=== PATIENT | male | born 1940 | race Caucasian/White ===

== ENCOUNTER 2018-06-18 09:47 | Emergency (ER) | payer MEDICARE ==
[2018-06-18 10:58] LABS: ALT (SGPT) 9 U/L (8-55); AST (SGOT) 18 U/L (5-34); Albumin 3.8 g/dL (3.4-4.8); Alkaline Phosphatase 51 U/L (40-150); Anion Gap 14 mmol/L (10-20); BUN (Urea Nitrogen) 14 mg/dL (8.4-25.7); Bilirubin, Total 0.7 mg/dL (0.2-1.2); Calc. Creatinine Clearance 0 mL/min (70-130); Calcium 9.2 mg/dL (7.8-10.44); Carbon Dioxide 23 mmol/L (23-31); Chloride 107 mmol/L (98-107); Estimated GFR-MDRD 67; Globulin 3.1 g/dL (2.4-3.5); Glucose 126 mg/dL (83-110); Potassium 4.1 mmol/L (3.5-5.1); Protein, Total 6.9 g/dL (5.8-8.1); Sodium 140 mmol/L (136-145)
[2018-06-18 10:59] LABS: #Eosinphils 0.1 thou/uL (0.0-0.7); #Lymphocytes 0.8 thou/uL (1.20-3.40); #Monocytes 0.5 thou/uL (0.11-0.59); #Neutrophils 5.4 thou/uL (1.40-6.50); %Basophils 0.1 % (0.0-1.0); %Eosinophils 1.2 % (0.0-10.0); %Lymphocytes 11.5 % (21.0-51.0); %Monocytes 7.2 % (0.0-10.0); Hemoglobin 14.3 g/dL (14.0-18.0); Mean Corpuscular HGB CONC 35.6 g/dL (32.0-36.0); Mean Corpuscular Hemoglobin 31.8 pg (27.0-31.0); Mean Corpuscular Volume 89.4 fL (78.0-98.0); Mean Platelet Volume 7.5 fL (7.4-10.4); PLT Morphology Comment Appears Decreased; Platelet Count 111 thou/uL (130-400); RBC Distribution Width 13.4 % (11.5-14.5); RBC Morphology Normal; Red Blood Cell (RBC) Count 4.48 mill/uL (4.70-6.10); White Blood Cell (WBC) Count 6.7 thou/uL (4.8-10.8)
[2018-06-18] MEDS ORDERED: Diazepam 2 MG TAB PO SCH (12:00)
--- NOTE | 2018-06-18 12:42 | RAD ---
LUMBAR SPINE THREE VIEWS: History: Low back pain. FINDINGS/IMPRESSION: Degenerative changes are present. There is grade I anterolisthesis of L5 over S1. No acute fracture o r bony destruction is identified. There are vascular calcifications. POS: [facility]
--- NOTE | 2018-06-18 12:50 | RAD ---
PORTABLE CHEST ONE VIEW: Date: 06-18-18 Time: 11:49 a.m. History: Non-Hodgkins' lymphoma. Bilateral flank pain. FINDINGS/IMPRESSION: There are changes of median sternotomy. The heart size is normal. The aorta is tortuous. There is a l eft port-a-cath with tips in the projection of the SVC. There is pulmonary vascular congestion. Pleur al calcifications are seen on the left. No lobar consolidation, pneumothoraces, or large effusions ar e identified. There are degenerative changes in the right shoulder joint. POS: [facility]
--- NOTE | 2018-06-18 13:14 | CT ---
CT CERVICAL SPINE WITH CORONAL AND SAGITTAL REFORMATIONS: History: Back pain, neck pain, headache. FINDINGS/IMPRESSION: Multilevel degenerative changes are seen in the cervical spine. No acute fracture or subluxation is i dentified. No facet malalignment is noted. There is left sided neural foraminal stenosis at C3-4 leve l and bilateral neural foraminal stenosis at C4-5 and C5-6 levels. Incidental note is made of a large intramuscular lipoma in the right upper paraspinal musculature. POS: STEVE
[2018-06-18] MEDS ORDERED: Diazepam 10 MG/2 ML SYRINGE IVP SCH (13:45)
[2018-06-18 15:13] LABS: Bilirubin Negative (Negative); Blood, Urine Negative (Negative); Clarity CLEAR (Clear); Glucose, Urine (Dipstick) Negative (Negative); Leukocyte Negative (Negative); Nitrite Negative (Negative); Protein, Urine (Dipstick) Negative (Neg-Trace); Specific Gravity, Urine 1.008 (1.002-1.036); Urobilinogen 0.2 mg/dL (0.2-1.0)
[2018-06-18] MEDS ORDERED: Cyclobenzaprine 10 MG TAB ONE (16:18)
== END 2018-06-18 17:04 | disposition home or self-care (01) ==
LOC: ERS 09:47
DX: M46.90 Unspecified inflammatory spondylopathy, site unspecified (principal); E78.5 Hyperlipidemia, unspecified; F17.220 Nicotine dependence, chewing tobacco, uncomplicated; Z79.899 Other long term (current) drug therapy
CPT/HCPCS: 36415; 71045; 72100; 72125; 80053; 81003; 85025; 85652; 86140; 96374; 96376; J2270; J3360

== ENCOUNTER 2018-06-22 13:54 | Inpatient (IN) | payer MEDICARE ==
[2018-06-22] MEDS ORDERED: Morphine 10 MG/ML VIAL ONE (15:01)
[2018-06-22] MEDS ORDERED: Ketorolac Tromethamine 30 MG/ML VIAL ONE (15:01)
--- NOTE | 2018-06-22 15:05 | CT ---
CT LUMBAR SPINE WITH CORONAL AND SAGITTAL REFORMATIONS: HISTORY: Back pain, loss of movement. FINDINGS: Multilevel degenerative changes are seen in the lumbar spine. No compression fracture is identified. There are chronic bilateral pars articularis defects at L5 level with grade I anterolisthesis of L5 over S1. There is vacuum disk phenomenon at L5-S1 disk. Bilateral neural foraminal stenosis are noted at L5-S1 level. IMPRESSION: 1. Lumbar spondylosis. 2. Bilateral spondylysis at L5 with grade I spondylolisthesis at L5 over S1. 3. Bilateral neural foraminal stenoses at L5-S1 level. POS: [facility]
--- NOTE | 2018-06-22 16:11 | ULT ---
FOCUSED ULTRASOUND OF THE REGION 06/22/18 COMPARISON: None. HISTORY: Groin pain. FINDINGS: The patient reports a palpable abnormality in the right "groin" region, superior to the scrotum and a djacent to the penis. In this region, there is a nonspecific round heterogeneously hypoechoic mass wi thin the subcutaneous fat measuring 1.5 x 1.5 x 1.1 cm. This lesion appears solid and is a nonspecifi c finding. IMPRESSION: Heterogeneously hypoechoic round mass in the area of palpable concern which appears solid. This may represent an abnormal lymph nodes. Soft tissue tumor or developing phlegmon are possibilities. Short term followup imaging following treatment to document resolution is advised. If this abnormality does not resolve despite treatment, an MRI of the region of interest with and without contrast would then be advised. Code T POS: [facility]
[2018-06-22 18:29] VITALS: BMI 33.2
[2018-06-22] MEDS ORDERED: Ondansetron ODT 4 MG TAB PO PRN (19:18)
--- NOTE | 2018-06-22 19:35 | PDOC.FPRHP ---
- History of Present Illness Chief Complaint: Lumbar back pain History of Present Illness: This is a 77 yo male with a PMH of CAD with CABG in 2008, HLD who presents to the ED with a CC of back pain. He states it has been going on for 4 days and is a sharp and severe pain. He states that he was working on a project at home prior to the start of his pain. He reports no injury to his back that he can remember. The pain is located in his lower back with no radiations. He states that movement makes it worse and relieved with rest. He states he has associated muscle tightness and back stiffness. He denies shooting pain, loss of bowel or bladder function, changes in sensation, or weakness. He also complains about a current inguinal hernia. ED Course: Pt. received toradol and morphine in the ED that reduced his pain from 05/21 to . - Allergies/Adverse Reactions Allergies Allergy/AdvReac Type Severity Reaction Status Date / Time No Known Drug Allergies Allergy Verified 06/22/18 18:47 - Home Medications Medication Instructions Recorded Confirmed Type FLUoxetine HCl [Fluoxetine HCl] 20 mg PO DAILY 06/22/18 06/22/18 History Finasteride 5 mg PO DAILY 06/22/18 06/22/18 History Isosorbide Mononitrate 10 mg PO DAILY 06/22/18 06/22/18 History Meloxicam 06/22/18 History Metoprolol Tartrate [Lopressor] 25 mg PO BID 06/22/18 06/22/18 History Ranitidine HCl 150 mg PO DAILY 06/22/18 06/22/18 History Rivaroxaban [Xarelto] 20 mg PO DAILY 06/22/18 06/22/18 History Simvastatin [Zocor] 40 mg PO HS 06/22/18 06/22/18 History Tamsulosin HCl 0.4 mg PO DAILY 06/22/18 06/22/18 History Temazepam 15 mg PO DAILY 06/22/18 06/22/18 History - History PMHx: CAD, HLD, hx of lymphoma, osteoarthritis PSHx: Hernia repair x3 FHx: None contributory Social: Former smoker, occasional alcohol use, no drug use - Review of Systems General: denies: fever/chills, weight/appetite/sleep changes, fatigue Eyes: reports: vision changes (Cataracts). denies: eye pain ENT: denies: nasal congestion, rhinorrhea Respiratory: reports: cough (has had non productive cough). denies: congestion , shortness of breath Cardiovascular: denies: chest pain, palpitation, edema Gastrointestinal: denies: nausea, vomiting, diarrhea, constipation, abdominal pain Genitourinary: denies: incontinence, dysuria Skin: denies: rashes, lesions Musculoskeletal: reports: pain (See HPI), tenderness, stiffness Neurological: denies: numbness, weakness Psychological: denies: anxiety, depression - Vital signs BP: [] HR: [] RR: [] Tmax: [] Pox: []% on [] Wt: [] - Physical Exam Constitutional: NAD, awake, alert and oriented HEENT: normocephalic and atraumatic, PERRLA, EOMI, MMM Neck: FROM, no JVD Chest: no-tender to palpation, no lesions Heart: RRR, normal S1/S2, no murmurs/rubs/gallops Lungs: no respiratory distress, good air movement Abdomen: soft, non-tender, bowel sounds present, no masses/distention -Musculoskeletal: Pt. has severe limitations in movement due to back pain. He is tender to palpation along his lumbar spine and in the paravertebral musculature. He has some tenderness into his posterior hips Neurological: CN II-XII intact, normal sensation Skin: no rash/lesions, good turgor Heme/Lymphatic: no unusual bruising or bleeding, no purpura Psychiatric: normal mood and affect, good judgment and insight, intact recent and remote memory FMR H&P: Results - Labs Result Diagrams: 06/23/18 06:13 06/23/18 06:13 - Radiology Interpretation Other Status: report reviewed by me (CT of back shows lumbar spondylosis, bilateral spondylysis at L5 with grade 1 spondylolisthesis at L5 over S1, bilateral neural stenosis at L5-S1 level US of groin nonspecific round heterogeneously hypoechoic mass within subcutaneous fat. Nonspecific finding) FMR H&P: A/P - Problem List (1) Intractable low back pain Current Visit: Yes Status: Acute Code(s): M54.5 - LOW BACK PAIN (2) Inguinal hernia, right Current Visit: Yes Status: Acute Code(s): K40.90 - UNIL INGUINAL HERNIA, W/ O OBST OR GANGR, NOT SPCF RECUR (3) CAD (coronary artery disease) of artery bypass graft Current Visit: Yes Status: Acute Code(s): I25.810 - ATHEROSCLEROSIS OF CABG W/O ANGINA PECTORIS (4) Osteoarthritis (arthritis due to wear and tear of joints) Current Visit: Yes Status: Acute Code(s): M19.90 - UNSPECIFIED OSTEOARTHRITIS, UNSPECIFIED SITE - Plan This is a 77 yo male with PMH of CAD, osteoarthritis Intractable lumbar back pain -Pt. has been seen on three different occasions for this issue within a narrow time line and was therefore admitted. He is being treated with scheduled meloxicam and PRN cyclobenzoprine and tramadol. CT reveals no fractures or other signs concerning for an acute process. Pt. also has no signs of cauda equina or neurological deficits in his lower legs. We will reevaluate patient's functionality tomorrow morning. CAD -continue home meds Arthritis -Continue home meds Code: DNR Prophylaxis: none Family: none at bedside Disposition: home in 1-2 days FMR H&P: Upper Level - Pertinent history 77M p/w "intractable" lower back pain. Patient seen in [facility] facility on three separate occasions for the same complaint and was admitted per hospital policy. Patient has a history of CAD s/p CABG, HLD, Non Hodgkin lymphoma, and leukemia. Patient not the best historian so we will corroborate history with PCP, Dr. Souza. Patient did strenuous outdoor activity one day prior to developing back pain. Imaging reveals degenerative changes of lumbar spine with mild spondylolisthesis of L5-S1 and foraminal narrowing. Patient denies any radicular pain, bowel/bladder incontinence, saddle anesthesia. He denies any fever/chills, night sweats, or increased fatigue over the last month. Back pain is sharp and constant and described as "ten fish hooks" stuck in lumbar region. Pt given morphine and toradol in ER with significant decrease in pain. - Pertinent findings Vital signs 98.6F 113/64mmHg 74 bpm 16 breaths/min 96% on RA Gen: A&Ox4 CV: RRR, no murmur Pulm: CTA-B Abd: non TTP; non distended Neuro: BLE sensation intact; DTR full and equal bilaterally; TTP over paraspinous lumbar musculature; no TTP along spinous processes; strength 5/5 bilaterally - Plan Date/Time: 06/22/18 193 Lumbar Back Pain: does not appear to be radicular in nature. Will continue with small dose of muscle relaxer, meloxicam, and ambulation. Monitor response to conservative therapy and proceed to [facility] and possible MRI if necessary. However, CT and XR show degenerative arthritic changes and are not significant for an acute process or compression fracture. Will speak with Dr. Souza in the morning in order to better understand patients history. Non Hodgkin Lymphoma: currently has mediport. Verify with PCP about past and possibly present treatments BPH: continue flomax and finasteride HLD: continue simvastatin CAD s/p CABG: continue Imdur and metoprolol I, Yong Mcclelland, have evaluated this patient and agree with findings/plan as outlined by management internship resident. Pertinent changes/additions are listed here. Attending Addendum - Attending Addendum Date/Time: 06/23/18 1241 I personally evaluated the patient and discussed the management with Dr. Mosher. I agree with the History, Examination, Assessment and Plan documented above with any addition or exceptions noted below. Patient is ahving severe back pain that interfers with ADLs wiht multiple ER visits. Pain seems improved today but he has not been out of bed. We will have PT/OT assess his ADLs, and discharge or furterh eval hemal be based on his function. He also notes right alfredo pain, but exam reveals no erythema or induration or evidence of torsion or infection. Scrotal ultrasound did not reveal acute issue. Advised outpt urology workup.
[2018-06-22] MEDS: Metoprolol Tartrate 25 MG TAB PO SCH (20:39)
[2018-06-22] MEDS: Simvastatin 40 MG TAB PO SCH (20:39)
[2018-06-22] MEDS: traMADol HCl 50 MG TAB PO PRN (20:51)
[2018-06-22] MEDS ORDERED: Temazepam 15 MG CAP PO SCH (23:30)
[2018-06-23] MEDS: Acetaminophen 325 MG TAB PO PRN (00:10)
[2018-06-23] MEDS: Cyclobenzaprine 10 MG TAB PO PRN ×2 (00:10→20:31)
--- NOTE | 2018-06-23 06:10 | PDOC.FM ---
- Subjective Subjective: Pt. states that he started hurting around 2 this morning. He states that his pain is a 7/10 currently. He denies chest pain, dyspnea, trouble breathing. He is still concerned about his hernia and says it is bothering him more than his back. Nursing states that he did not get up to use the restroom and just use his urinal. Nursing was worried to get him walking for fear of falling. - Objective MAR Reviewed: Yes Vital Signs & Weight: Vital Signs (12 hours) Temp Pulse Resp BP BP Pulse Ox 06/23/18 00:00 98.1 F 72 18 117/70 96 06/22/18 20:00 98.6 F 74 16 113/64 96 Weight Weight 96.162 kg I&O: 06/21/18 06/22/18 06/23/18 06:59 06:59 06:59 Intake Total 240 Output Total 400 Balance -160 Result Diagrams: 06/23/18 06:13 06/23/18 06:13 <Prosper Mosher - Last Filed: 06/23/18 07:37> - Objective Vital Signs & Weight: Vital Signs (12 hours) Temp Pulse Resp BP BP Pulse Ox 06/23/18 08:35 98.6 F 70 20 155/75 H 97 06/23/18 06:00 97.8 F 64 16 147/91 H 98 Weight Weight 96.162 kg I&O: 06/22/18 06/23/18 06/24/18 06:59 06:59 06:59 Intake Total 240 Output Total 650 Balance -410 Result Diagrams: 06/23/18 06:13 06/23/18 06:13 <Kael Mei - Last Filed: 06/23/18 13:04> Phys Exam - Physical Examination Constitutional: NAD (Ordering breakfast) HEENT: PERRLA, moist MMs Neck: no JVD, full ROM Respiratory: no wheezing, clear to auscultation bilateral Cardiovascular: RRR, no significant murmur Gastrointestinal: soft, non-tender, no distention, positive bowel sounds Pt. has inguinal hernia that is mildly tender to palpation Musculoskeletal: no edema, pulses present Pt. has back pain, worse with moving. Pain to palpation of lumbar musculature. Neurological: normal sensation, moves all 4 limbs Psychiatric: normal affect, A&O x 3 Skin: normal turgor, cap refill <2 seconds Deviation from normal: Has 5x5 cm lipoma on left upper back <[place]ShannanProsper - Last Filed: 06/23/18 07:37> Dx/Plan (1) Intractable low back pain Code(s): M54.5 - LOW BACK PAIN Status: Acute (2) Inguinal hernia, right Code(s): K40.90 - UNIL INGUINAL HERNIA, W/O OBST OR GANGR, NOT SPCF RECUR Status: Acute (3) CAD (coronary artery disease) of artery bypass graft Code(s): I25.810 - ATHEROSCLEROSIS OF CABG W/O ANGINA PECTORIS Status: Acute (4) Osteoarthritis (arthritis due to wear and tear of joints) Code(s): M19.90 - UNSPECIFIED OSTEOARTHRITIS, UNSPECIFIED SITE Status: Acute - Plan Plan: This is a 77 yo male with PMH of CAD, osteoarthritis Intractable lumbar back pain -Pt. has been seen on three different occasions for this issue within a narrow time line and was therefore admitted. He is being treated with scheduled meloxicam and PRN cyclobenzoprine and tramadol. CT reveals no fractures or other signs concerning for an acute process. Pt. also has no signs of cauda equina or neurological deficits in his lower legs. We will consult PT to measure is ability to walk and move about. I will discuss pt. with Dr. Souza later this morning. CAD -continue home meds Arthritis -Continue home meds Code: DNR Prophylaxis: none Family: none at bedside Disposition: home in 1-2 days <Prosper Mosher - Last Filed: 06/23/18 07:37> (1) Intractable low back pain Code(s): M54.5 - LOW BACK PAIN Status: Acute (2) Inguinal hernia, right Code(s): K40.90 - UNIL INGUINAL HERNIA, W/O OBST OR GANGR, NOT SPCF RECUR Status: Acute (3) CAD (coronary artery disease) of artery bypass graft Code(s): I25.810 - ATHEROSCLEROSIS OF CABG W/O ANGINA PECTORIS Status: Acute (4) Osteoarthritis (arthritis due to wear and tear of joints) Code(s): M19.90 - UNSPECIFIED OSTEOARTHRITIS, UNSPECIFIED SITE Status: Acute <Kael Mei - Last Filed: 06/23/18 13:04> Attending Addendum - Attending Addendum Date/Time: 06/23/18 1300 I personally evaluated the patient and discussed the management with Dr. Mosher. I agree with the History, Examination, Assessment and Plan documented above with any addition or exceptions noted below. Brian's strength is 5/5 in his legs. It seems to be pain only that limits his activity. Will see results of OT/PT. <aKel Mei - Last Filed: 06/23/18 13:04>
[2018-06-23] MEDS: traMADol HCl 50 MG TAB PO PRN ×2 (06:31→20:13)
[2018-06-23 06:45] LABS: ALT (SGPT) 8 U/L (8-55); AST (SGOT) 12 U/L (5-34); Albumin 3.2 g/dL (3.4-4.8); Alkaline Phosphatase 47 U/L (40-150); Anion Gap 12 mmol/L (10-20); BUN (Urea Nitrogen) 15 mg/dL (8.4-25.7); Bilirubin, Total 0.5 mg/dL (0.2-1.2); Calc. Creatinine Clearance 90 mL/min (70-130); Calcium 9.1 mg/dL (7.8-10.44); Carbon Dioxide 29 mmol/L (23-31); Chloride 99 mmol/L (98-107); Estimated GFR-MDRD 80; Globulin 3.1 g/dL (2.4-3.5); Glucose 111 mg/dL (83-110); Potassium 3.8 mmol/L (3.5-5.1); Protein, Total 6.3 g/dL (5.8-8.1); Sodium 136 mmol/L (136-145)
[2018-06-23 06:58] LABS: Hemoglobin 12.2 g/dL (14.0-18.0); Mean Corpuscular Hemoglobin 30.8 pg (27.0-31.0); Mean Platelet Volume 7.3 fL (7.4-10.4); Platelet Count 142 thou/uL (130-400); RBC Distribution Width 12.9 % (11.5-14.5); Red Blood Cell (RBC) Count 3.96 mill/uL (4.70-6.10); White Blood Cell (WBC) Count 4.1 thou/uL (4.8-10.8)
[2018-06-23 08:29] LABS: Eosinophils 2 % (0-10); Hypochromia SLIGHT = 6-15 cells (100X) (0-5/hpf); Lymphocytes 20 % (21-51); MDiff Complete? YES; Monocytes 6 % (0-10); Neutrophil 72 % (42-75); PLT Morphology Comment Appears Adequate; Polychromasia SLIGHT = 2-3 cells (100X) (0-2/hpf)
[2018-06-23] MEDS: Metoprolol Tartrate 25 MG TAB PO SCH ×2 (08:34→20:13)
[2018-06-23] MEDS: Meloxicam 15 MG TAB PO SCH (08:35)
[2018-06-23] MEDS: Rivaroxaban 10 MG TAB PO SCH (08:35)
[2018-06-23] MEDS: Famotidine 20 MG TAB PO SCH (08:35)
[2018-06-23] MEDS: FLUoxetine HCl 20 MG CAP PO SCH (08:36)
[2018-06-23] MEDS: Finasteride 5 MG TAB PO SCH (08:36)
[2018-06-23] MEDS: Tamsulosin HCl 0.4 MG CAP PO SCH (08:36)
[2018-06-23] MEDS ORDERED: Temazepam 15 MG CAP PO SCH (09:00)
[2018-06-23] MEDS ORDERED: Non-Formulary Item 1 EACH (Ranitidine Hcl [Ranitidine Hcl] 150 MG) PO SCH (09:00)
[2018-06-23] MEDS: Isosorbide Mononitrate 20 MG TAB PO SCH (10:00)
[2018-06-23] MEDS: Simvastatin 40 MG TAB PO SCH (20:13)
[2018-06-23] MEDS: Temazepam 15 MG CAP PO SCH (20:13)
[2018-06-24] MEDS: Acetaminophen 325 MG TAB PO PRN ×2 (00:29→11:48)
[2018-06-24 05:41] LABS: ALT (SGPT) Less than 7 U/L (8-55); AST (SGOT) 12 U/L (5-34); Albumin 3.2 g/dL (3.4-4.8); Alkaline Phosphatase 49 U/L (40-150); Anion Gap 9 mmol/L (10-20); BUN (Urea Nitrogen) 13 mg/dL (8.4-25.7); Bilirubin, Total 0.5 mg/dL (0.2-1.2); Calc. Creatinine Clearance 77 mL/min (70-130); Calcium 9.1 mg/dL (7.8-10.44); Carbon Dioxide 32 mmol/L (23-31); Chloride 99 mmol/L (98-107); Estimated GFR-MDRD 67; Globulin 3.1 g/dL (2.4-3.5); Glucose 117 mg/dL (83-110); Potassium 3.9 mmol/L (3.5-5.1); Protein, Total 6.3 g/dL (5.8-8.1); Sodium 136 mmol/L (136-145)
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
[2018-06-24 06:00] LABS: Band 5 % (5-11); Eosinophils 2 % (0-10); Hemoglobin 12.4 g/dL (14.0-18.0); Lymphocytes 13 % (21-51); MDiff Complete? YES; Mean Corpuscular Hemoglobin 29.8 pg (27.0-31.0); Mean Corpuscular Volume 87.7 fL (78.0-98.0); Mean Platelet Volume 7.2 fL (7.4-10.4); Monocytes 11 % (0-10); Neutrophil 68 % (42-75); PLT Morphology Comment Appears Adequate; Platelet Count 159 thou/uL (130-400); RBC Distribution Width 12.8 % (11.5-14.5); Red Blood Cell (RBC) Count 4.14 mill/uL (4.70-6.10); White Blood Cell (WBC) Count 4.8 thou/uL (4.8-10.8)
[2018-06-24] MEDS: traMADol HCl 50 MG TAB PO PRN ×2 (07:10→23:18)
[2018-06-24] MEDS: Tamsulosin HCl 0.4 MG CAP PO SCH (09:19)
[2018-06-24] MEDS: Rivaroxaban 10 MG TAB PO SCH (09:19)
[2018-06-24] MEDS: Meloxicam 15 MG TAB PO SCH (09:19)
[2018-06-24] MEDS: Finasteride 5 MG TAB PO SCH (09:19)
[2018-06-24] MEDS: Isosorbide Mononitrate 20 MG TAB PO SCH (09:19)
[2018-06-24] MEDS: Metoprolol Tartrate 25 MG TAB PO SCH ×2 (09:19→20:46)
[2018-06-24] MEDS: FLUoxetine HCl 20 MG CAP PO SCH (09:19)
[2018-06-24] MEDS: Famotidine 20 MG TAB PO SCH (09:20)
[2018-06-24] MEDS: Temazepam 15 MG CAP PO SCH (20:46)
[2018-06-24] MEDS: Simvastatin 40 MG TAB PO SCH (20:46)
--- NOTE | 2018-06-25 05:55 | PDOC.FM ---
Addendum entered and electronically signed by Marisol Roberson MD 06/25/18 12:28 : Talked with patient along with CM about chemo tx for his NHL. He wishes to no longer receive tx so that he is able to receive hospice. I am waiting to hear back from his oncologist Dr. Guillen from [place] to discuss this with him. Original Note: - Subjective Subjective: This is a 77 yo M here for intractable back pain, now improved on medications. On exam today, patient endorses back pain is improved to 4/10 pain. Mace is being controlled with meloxicam and flexeril. He talked with hospice and understands he was accepted into their care. Per , she is unable to take care of both him and the grandson which is why hospice was pursued. Patient states he is ready to go home and has an appointment with Dr. Souza, his PCP , later today. Patient denies any SOB, chest pain, abdominal pain, fever, NVD. - Objective Vital Signs & Weight: Vital Signs (12 hours) Temp Pulse Resp BP BP Pulse Ox 06/24/18 23:49 99.6 F 65 20 135/65 95 06/24/18 20:00 98.5 F 77 18 158/72 H 97 Weight Weight 96.162 kg I&O: 06/23/18 06/24/18 06/25/18 06:59 06:59 06:59 Intake Total 240 1600 1400 Output Total 650 Balance -410 1600 1400 Result Diagrams: 06/25/18 05:52 06/25/18 05:52 <Marisol Roberson - Last Filed: 06/25/18 11:52> - Objective Vital Signs & Weight: Vital Signs (12 hours) Temp Pulse Resp BP Pulse Ox 06/25/18 11:04 98 F 71 20 125/65 96 06/25/18 07:45 97.7 F 75 18 97 06/25/18 07:18 97.7 F 75 18 178/75 H 97 Weight Weight 96.162 kg I&O: 06/24/18 06/25/18 06/26/18 06:59 06:59 06:59 Intake Total 1600 1400 Balance 1600 1400 Result Diagrams: 06/25/18 05:52 06/25/18 05:52 <Gretta Lipscomb - Last Filed: 06/25/18 13:02> Phys Exam - Physical Examination Constitutional: NAD Patient is resting comfortably in his chair HEENT: PERRLA, moist MMs Neck: supple, full ROM Respiratory: no wheezing, clear to auscultation bilateral Cardiovascular: RRR, no significant murmur, no rub Gastrointestinal: soft, non-tender, no distention, positive bowel sounds Musculoskeletal: no edema, pulses present TTP along lower lumbar spine Neurological: non-focal, normal sensation, moves all 4 limbs Psychiatric: A&O x 3 Skin: no rash, normal turgor <Marisol Roberson - Last Filed: 06/25/18 11:52> Dx/Plan (1) CAD (coronary artery disease) of artery bypass graft Code(s): I25.810 - ATHEROSCLEROSIS OF CABG W/O ANGINA PECTORIS Status: Acute (2) Inguinal hernia, right Code(s): K40.90 - UNIL INGUINAL HERNIA, W/O OBST OR GANGR, NOT SPCF RECUR Status: Acute (3) Intractable low back pain Code(s): M54.5 - LOW BACK PAIN Status: Acute (4) Osteoarthritis (arthritis due to wear and tear of joints) Code(s): M19.90 - UNSPECIFIED OSTEOARTHRITIS, UNSPECIFIED SITE Status: Acute (5) Non-Hodgkin lymphoma Code(s): C85.90 - NON-HODGKIN LYMPHOMA, UNSPECIFIED, UNSPECIFIED SITE Status: Acute - Plan Plan: Plan: This is a 77 yo male with PMH of CAD, osteoarthritis here for intractable back pain controlled with medications. Intractable lumbar back pain - Pt. has been seen on three different occasions for this issue within a narrow time line and was therefore admitted. - Pain controlled with scheduled meloxicam and PRN cyclobenzoprine and tramadol. - CT: no fractures or other signs concerning for an acute process. Pt. also has no signs of cauda equina or neurological deficits in his lower legs. - PT consulted to measure is ability to walk and move about. CAD -continue home meds Osteoarthritis -Continue home meds Hernia - Discussed with Dr. Souza; hernia has been present > 6 mo - CT shows no signs of strangulation - Will continue to monitor and recommend outpatient tx [place] Lymphoma - Pt was receiving chemo every 3 weeks; He is no longer wanting to pursue tx and was therefore accepted to hospice - Will go back and talk to patient more extensively about his chemo tx and his desire to either pursue tx or not. Will also contact the oncologist to determine if chemo is palliative or curative. - Per pt's , she is unable to care for the and grandson which is why hospice was consulted Code: DNR Prophylaxis: none Family: none at bedside Disposition: home today with hospice; f/u with PCP later this week <Marisol Roberson - Last Filed: 06/25/18 11:52> Attending Addendum - Attending Addendum Date/Time: 06/25/18 9161 I personally evaluated the patient and discussed the management with Dr. Roberson. I agree with the History, Examination, Assessment and Plan documented above with any addition or exceptions noted below. Pt has expressed desire to stop chemo therapy (curative treatment) and proceed with hospice care. He is stable for discharge. <Gretta Lipscomb - Last Filed: 06/25/18 13:02>
[2018-06-25 06:36] LABS: ALT (SGPT) 7 U/L (8-55); AST (SGOT) 12 U/L (5-34); Albumin 3.4 g/dL (3.4-4.8); Alkaline Phosphatase 53 U/L (40-150); Anion Gap 12 mmol/L (10-20); BUN (Urea Nitrogen) 11 mg/dL (8.4-25.7); Bilirubin, Total 0.6 mg/dL (0.2-1.2); Calc. Creatinine Clearance 87 mL/min (70-130); Calcium 9.4 mg/dL (7.8-10.44); Carbon Dioxide 31 mmol/L (23-31); Chloride 97 mmol/L (98-107); Estimated GFR-MDRD 77; Globulin 3.3 g/dL (2.4-3.5); Glucose 122 mg/dL (83-110); Potassium 4.2 mmol/L (3.5-5.1); Protein, Total 6.7 g/dL (5.8-8.1); Sodium 136 mmol/L (136-145)
[2018-06-25 06:41] LABS: Hemoglobin 12.5 g/dL (14.0-18.0); Mean Corpuscular HGB CONC 34.7 g/dL (32.0-36.0); Mean Corpuscular Hemoglobin 30.6 pg (27.0-31.0); Mean Corpuscular Volume 88.1 fL (78.0-98.0); Mean Platelet Volume 7.2 fL (7.4-10.4); Platelet Count 189 thou/uL (130-400); RBC Distribution Width 12.9 % (11.5-14.5); Red Blood Cell (RBC) Count 4.09 mill/uL (4.70-6.10); White Blood Cell (WBC) Count 5.4 thou/uL (4.8-10.8)
[2018-06-25 08:16] LABS: Band 7 % (5-11); Lymphocytes 10 % (21-51); MDiff Complete? YES; Monocytes 8 % (0-10); Neutrophil 75 % (42-75); PLT Morphology Comment Appears Adequate; Polychromasia SLIGHT = 2-3 cells (100X) (0-2/hpf)
[2018-06-25] MEDS: Rivaroxaban 10 MG TAB PO SCH (09:18)
[2018-06-25] MEDS: Famotidine 20 MG TAB PO SCH (09:19)
[2018-06-25] MEDS: Tamsulosin HCl 0.4 MG CAP PO SCH (09:19)
[2018-06-25] MEDS: Finasteride 5 MG TAB PO SCH (09:19)
[2018-06-25] MEDS: Metoprolol Tartrate 25 MG TAB PO SCH (09:19)
[2018-06-25] MEDS: Isosorbide Mononitrate 20 MG TAB PO SCH (09:19)
[2018-06-25] MEDS: Acetaminophen 325 MG TAB PO PRN (09:25)
[2018-06-25] MEDS: FLUoxetine HCl 20 MG CAP PO SCH (09:25)
[2018-06-25] MEDS: Meloxicam 15 MG TAB PO SCH (09:25)
[2018-06-25 12:31] VITALS: BP 125/65; TEMP 98
--- NOTE | 2018-06-26 01:32 | DIS-2 ---
DATE OF ADMISSION: 06/22/2018 DATE OF DISCHARGE: 06/25/2018 RESIDENT: Marisol Roberson MD ADMITTING ATTENDING: Dr. Kael Mei DISCHARGE ATTENDING: Dr. Gretta Lipscomb CONSULTATIONS: None. PROCEDURES: 1. Lumbar spine CT on 06/22/2018: findings are lumbar spondylosis, bilateral spondylolysis at L5 with grade 1 spondylolisthesis at L5-S1, bilateral neuroforaminal stenosis at L5-S1 level. 2. Soft tissue ultrasound on 06/22/2018: findings are heterogeneously hypoechoic round mass, may represent an abnormal lymph node. Recommend following up imaging after treatment. PRIMARY DIAGNOSIS: Intractable lumbar pain secondary to osteoarthritis. SECONDARY DIAGNOSES: Inguinal hernia, non-Hodgkin lymphoma, coronary artery disease status post coronary artery bypass graft. DISCHARGE MEDICATIONS: 1. Tramadol (Ultram) 50 mg oral every 6 hours as needed. 2. Temazepam 15 mg oral daily. 3. Finasteride 5 mg oral daily. 4. Fluoxetine 20 mg oral daily. 5. Ranitidine 150 mg oral daily. 6. Tamsulosin 0.4 mg oral daily. 7. Simvastatin (Zocor) 40 mg oral at bedtime. 8. Rivaroxaban (Xarelto) 20 mg oral daily. DISCONTINUED MEDICATIONS: None. HISTORY OF PRESENT ILLNESS AND HOSPITAL COURSE: This is a 77-year-old male with past medical history significant for non- Hodgkin lymphoma, CAD status post CABG in 2008, inguinal hernia, and osteoarthritis, presented to the ED on 06/22/2018 with a chief complaint of lower back pain after working on a project at home. He reported no injury to the site. Imaging showed no acute process. His pain was controlled with scheduled meloxicam and p.r.n. cyclobenzaprine, and tramadol. In regard to the patient's hernia, Dr. Souza the patient's PCP, was contacted to get a better picture of the patient's condition. He states the patient has had the hernia for at least 6 months and is not an acute issue. We recommend treating in the outpatient setting. In regard to the patient's non-Hodgkin lymphoma, the patient has decided against treatment, so he can begin home hospice. Per the patient's , she cannot take care of the patient along with her grandson and so hospice was consulted. Hospice has agreed to accept the patient and the patient will begin under their care. Dr. Souza has been kept in the loop on the patient's condition and will see him in the outpatient setting. DISPOSITION: Stable. DISCHARGE INSTRUCTIONS: 1. Location: Home hospice. 2. Diet: Regular. 3. Activity: Ad-leticia. 4. Follow up with Dr. Souza within 3 days. KISHA
== END 2018-06-25 13:58 | disposition hospice, home (50) | DRG 552 ==
LOC: ERS 13:54 → SURG B 17:40
PROVIDERS: ADMIT Family Medicine; ATTEND Family Medicine
DX: M47.896 Other spondylosis, lumbar region (principal); C85.90 Non-Hodgkin lymphoma, unspecified, unspecified site; I25.810 Atherosclerosis of coronary artery bypass graft(s) without angina pectoris; M43.16 Spondylolisthesis, lumbar region; M48.061 Spinal stenosis, lumbar region without neurogenic claudication; K40.90 Unilateral inguinal hernia, without obstruction or gangrene, not specified as recurrent; Z95.1 Presence of aortocoronary bypass graft; M19.90 Unspecified osteoarthritis, unspecified site; Z66 Do not resuscitate; Z87.891 Personal history of nicotine dependence; Z91.81 History of falling; E78.5 Hyperlipidemia, unspecified; G30.9 Alzheimer's disease, unspecified; F02.80 Dementia in other diseases classified elsewhere, unspecified severity, without behavioral disturbance, psychotic disturbance, mood disturbance, and anxiety; Z85.6 Personal history of leukemia
CPT/HCPCS: 36415; 72131; 76999; 80053; 85025; 96374; 96375; G8978-GP-CI; G8979-GP-CI; G8980-GP-CI; G8987-GO-CI; G8988-GO-CI; G8989-GO-CI; J1885; J2270

== ENCOUNTER 2018-07-07 15:46 | Emergency (ER) | payer MEDICARE ==
[2018-07-07 16:33] LABS: #Basophils 0.1 thou/uL (0.0-0.2); #Lymphocytes 0.2 thou/uL (1.20-3.40); #Monocytes 0.6 thou/uL (0.11-0.59); #Neutrophils 11.8 thou/uL (1.40-6.50); %Basophils 0.9 % (0.0-1.0); %Eosinophils 0.1 % (0.0-10.0); %Lymphocytes 1.8 % (21.0-51.0); %Monocytes 4.8 % (0.0-10.0); %Neutrophils 92.4 % (42.0-75.0); Hemoglobin 13.6 g/dL (14.0-18.0); Mean Corpuscular HGB CONC 33.5 g/dL (32.0-36.0); Mean Corpuscular Hemoglobin 28.8 pg (27.0-31.0); Mean Corpuscular Volume 85.9 fL (78.0-98.0); Platelet Count 288 thou/uL (130-400); RBC Distribution Width 13.2 % (11.5-14.5); Red Blood Cell (RBC) Count 4.73 mill/uL (4.70-6.10); White Blood Cell (WBC) Count 12.7 thou/uL (4.8-10.8)
[2018-07-07 16:55] LABS: ALT (SGPT) 14 U/L (8-55); AST (SGOT) 14 U/L (5-34); Albumin 3.2 g/dL (3.4-4.8); Alkaline Phosphatase 74 U/L (40-150); Anion Gap 15 mmol/L (10-20); BUN (Urea Nitrogen) 13 mg/dL (8.4-25.7); Bilirubin, Total 0.9 mg/dL (0.2-1.2); Calc. Creatinine Clearance 0 mL/min (70-130); Calcium 9.2 mg/dL (7.8-10.44); Carbon Dioxide 29 mmol/L (23-31); Chloride 94 mmol/L (98-107); Estimated GFR-MDRD 86; Globulin 3.4 g/dL (2.4-3.5); Glucose 176 mg/dL (83-110); Potassium 3.6 mmol/L (3.5-5.1); Protein, Total 6.6 g/dL (5.8-8.1); Sodium 134 mmol/L (136-145)
--- NOTE | 2018-07-07 17:15 | RAD ---
PORTABLE AP CHEST X-RAY: 07/07/2018 HISTORY: Increasing agitation. Sepsis. Tachypneic. Burning at site of catheter placement. COMPARISON: 06/18/2018 FINDINGS: Left internal jugular vein Mediport catheter is noted in place with tip unchanged in position. Post surgical changes related to CABG are again noted. The cardiac silhouette is magnified by projection but stable in size. Pleural-based calcifications are again seen at the right lung base and in the le ft mid lung zone, likely related to calcified pleural-based plaques. There is mild pulmonary vascula r congestion. Mild increased interstitial densities are also again seen, similar to prior study. Th ere is prominent right glenohumeral osteoarthropathy. No other interval change. IMPRESSION: 1. Mild increased interstitial densities, which are overall similar to the prior examination, and fi ndings could be attributable to mild chronic lung changes, but an element of mild pulmonary edema or an infectious process is a possibility. 2. Bilateral calcified pleural-based plaques. POS: STEVE
[2018-07-07 18:03] LABS: Bilirubin Moderate (Negative); Blood, Urine Large (Negative); Clarity CLOUDY (Clear); Glucose, Urine (Dipstick) Negative (Negative); Leukocyte Moderate (Negative); Nitrite Negative (Negative); Protein, Urine (Dipstick) 30 mg/dL (Neg-Trace); Specific Gravity, Urine 1.026 (1.002-1.036)
[2018-07-07 18:05] LABS: Bacteria/HPF None Seen HPF (None Seen); RBC/HPF GREATER THAN 50-TNTC HPF (0-3)
[2018-07-07 18:18] LABS: Hyaline Casts/LPF 4-6 HYALINE CAST LPF (0-3 Hyaline); Other Casts/LPF None Seen LPF (0-3 Hyaline)
[2018-07-07 18:19] LABS: Renal Epithelial None Seen HPF (0-3); Transitional Epithelial NONE SEEN HPF (0-3)
[2018-07-07] MEDS ORDERED: Sodium Chloride 0.9% 100 ML ONE (18:50)
[2018-07-07] MEDS ORDERED: Piperacillin/Tazobactam 4.5 GM VIAL ONE (18:50)
[2018-07-07] MEDS ORDERED: Ondansetron HCl/PF 4 MG/2 ML Vial ONE (20:47)
[2018-07-07] MEDS ORDERED: Morphine 4 MG/ML VIAL ONE (20:47)
--- NOTE | 2018-07-10 13:46 | EKG ---
Test Reason : SEPSIS Blood Pressure : / mmHG Vent. Rate : 094 BPM Atrial Rate : 094 BPM P-R Int : 152 ms QRS Dur : 104 ms QT Int : 312 ms P-R-T Axes : 119 -29 035 degrees QTc Int : 390 ms Sinus rhythm with Premature atrial complexes with Abberant conduction Otherwise normal ECG Confirmed by ADITYA BHATIA, JOSE ([id number]), index editor WENDIE MARTINEZ ([id number] on 07/10/2018 1:45:36 PM Referred By: Confirmed By:JOSE BURGESS MD
== END 2018-07-08 00:05 | disposition home or self-care (01) ==
LOC: ERS 15:46
DX: N39.0 Urinary tract infection, site not specified (principal); F03.90 Unspecified dementia, unspecified severity, without behavioral disturbance, psychotic disturbance, mood disturbance, and anxiety; E78.5 Hyperlipidemia, unspecified; F17.220 Nicotine dependence, chewing tobacco, uncomplicated; Z79.899 Other long term (current) drug therapy; Z79.01 Long term (current) use of anticoagulants
CPT/HCPCS: 51702; 71045; 80053; 81003; 81015; 83605; 83880; 85025; 87040; 87077; 87086; 87149; 87186; 93005; 94760; 96365; 96366; 96367; 96375; J1956; J2270; J2405; J2543; J7050